=== PATIENT | female | born 1940 | race Caucasian/White ===

== ENCOUNTER 2021-10-15 18:01 | Emergency (ER) | payer OTHER, MEDICARE, BC ==
--- NOTE | 2021-10-15 19:36 | EDM.PDOC ---
ED HPI GENERAL MEDICAL PROBLEM - General Chief Complaint: Lower Extremity Injury/Pain Stated Complaint: L HIP PAIN DUE TO FALL Time Seen by Provider: 10/15/21 19:10 Source of Information: Reports: Patient History Limitations: Reports: No Limitations - History of Present Illness INITIAL COMMENTS - FREE TEXT/NARRATIVE: 81-year-old female fell at work landing on her left hip causing significant discomfort. She could still bear weight, her coworkers helped her to her car she drove here. She has moderate pain at rest, significant pain with weightbearing. There is no deformity, shortening or rotation. No other injury or complaints, she is very healthy, takes no medications and has no significant medical history. Onset: Sudden Duration: Hour(s): (Within the last hour) Location: Reports: Lower Extremity, Left Quality: Reports: Sharp, Stabbing Worsens with: Reports: Other (Weightbearing or palpation is painful), Movement Associated Symptoms: Reports: No Other Symptoms Left Hip Pain Score (Numeric/FACES): 10 - Related Data Allergies Allergy/AdvReac Type Severity Reaction Status Date / Time gluten Allergy Intermediate Rash Verified 10/15/21 18:38 wheat Allergy Intermediate Rash Verified 10/15/21 18:38 Dairy Products Allergy Mild Nausea Verified 10/15/21 18:38 egg Allergy Mild Nausea Verified 10/15/21 18:38 corn Allergy Unknown Cannot Verified 10/15/21 18:38 Remember soy Allergy Unknown Cannot Verified 10/15/21 18:38 Remember Home Meds: Home Meds NK [No Known Home Meds] 10/15/21 [History] Past Medical History Musculoskeletal History: Reports: Fracture Other Musculoskeletal History: wrist and ankle Neurological History: Reports: Concussion Endocrine/Metabolic History: Reports: Other (See Below) Other Endocrine/Metabolic History: hypoglycemia Dermatologic History: Reports: Psoriasis - Infectious Disease History Infectious Disease History: Reports: Chicken Pox, Measles - Past Surgical History Female Surgical History: Reports: Hysterectomy Social & Family History - Tobacco Use Tobacco Use Status *Q: Never Tobacco User - Caffeine Use Caffeine Use: Reports: None - Recreational Drug Use Recreational Drug Use: No Review of Systems - Review of Systems Review Of Systems: See Below Constitutional: Denies: Fever Respiratory: Reports: No Symptoms Cardiovascular: Reports: No Symptoms GI/Abdominal: Reports: No Symptoms Musculoskeletal: Reports: Other (Left hip pain) Skin: Denies: Bruising Neurological: Reports: Paresthesia (Some numbness has developed in the left lower extremity) Psychiatric: Reports: No Symptoms ED EXAM, GENERAL - Physical Exam Exam: See Below Exam Limited By: No Limitations General Appearance: Alert, No Apparent Distress Eye Exam: Bilateral Eye: Normal Inspection Head: Atraumatic Neck: Supple, Non-Tender Respiratory/Chest: No Respiratory Distress Cardiovascular: Regular Rate, Rhythm Extremities: Other (Lower extremities are symmetric, there is no shortening or external rotation of the left leg. Passive range of motion of the hip is uncomfortable but not severe pain. On palpation she is very sore over the lateral left hip. No groin discomfort) Neurological: Alert, Oriented, No Motor/Sensory Deficits Psychiatric: Normal Affect, Normal Mood Skin Exam: Warm, Dry Course - Vital Signs Last Recorded V/S: Last Vital Signs Temp 97.9 F 10/15/21 18:45 Pulse 66 10/15/21 18:45 Resp 16 10/15/21 18:45 BP 139/68 10/15/21 18:45 Pulse Ox 97 10/15/21 18:45 - Orders/Labs/Meds Orders: Active Orders 24 hr Category Date Time Status Consult to Orthopedic Clinic [CONS] Routine Cons 10/15/21 20:16 Active DME for Discharge [COMM] Stat Oth 10/15/21 19:54 Ordered - Re-Assessments/Exams Free Text/Narrative Re-Assessment/Exam: 10/15/21 19:[address] of the pelvis was obtained without contrast. This shows a comminuted slightly displaced greater trochanteric fracture. Dr. Ramon was consulted and is reviewing the films. 10/15/21 21:56 FINDINGS: Bones: Comminuted and nondisplaced fracture of the left femoral greater trochanter. Joints: Degenerative changes of the right hip. Mild degenerative changes of the included lumbar spine. Soft tissues: Unremarkable. IMPRESSION: Nondisplaced fracture of the left greater trochanter. Patient needs just pain control and activity as tolerated with follow-up. She did not want to be hospitalized. She also refused any pain medications. She was given a walker which she tolerated well, was able to get off and on the toilet. Should be discharged and follow-up with Dr. Ramon in 1 week. Departure - Departure Time of Disposition: 20:40 Disposition: Home, Self-Care 01 Clinical Impression: Fracture of greater trochanter of left femur Qualifiers: Encounter type: initial encounter Fracture type: closed Fracture alignment: di splaced Qualified Code(s): S72.112A - Displaced fracture of greater trochanter of left femur, initial encounter for closed fracture - Discharge Information Instructions: Hip Fracture Referrals: PCP,None [Primary Care Provider] - Forms: ED Department Discharge Care Plan Goals: Padding to the area while sleeping will be helpful, use walker for ambulation and increase activity as tolerated. Return anytime if you are unable to care for yourself at home. Recheck with Dr. Ramon next Thursday, they should call you for an appointment time. Sepsis Event Note (ED) - Evaluation Sepsis Screening Result: No Definite Risk - Focused Exam Vital Signs: Vital Signs Temp Pulse Resp BP Pulse Ox 10/15/21 18:45 97.9 F 66 16 139/68 97 10/15/21 18:31 97.9 F 66 16 139/68 97 - My Orders Last 24 Hours: My Active Orders 10/15/21 19:54 DME for Discharge [COMM] Stat 10/15/21 20:16 Consult to Orthopedic Clinic [CONS] Routine - Assessment/Plan Last 24 Hours: My Active Orders 10/15/21 19:54 DME for Discharge [COMM] Stat 10/15/21 20:16 Consult to Orthopedic Clinic [CONS] Routine
--- NOTE | 2021-10-15 20:30 | CRLCT ---
For Patients: As a result of the Century Cures Act, medical imaging exams and procedure reports are released immediately into your electronic medical record. You may view this report before your referring provider. If you have questions, please contact your health care provider. INDICATION: Fall, left hip pain. TECHNIQUE: CT pelvis without contrast. COMPARISON: None. FINDINGS: Bones: Comminuted and nondisplaced fracture of the left femoral greater trochanter. Joints: Degenerative changes of the right hip. Mild degenerative changes of the included lumbar spine. Soft tissues: Unremarkable. IMPRESSION: Nondisplaced fracture of the left greater trochanter. Please note that all CT scans at this facility use dose modulation, iterative reconstruction, and/or weight-based dosing when appropriate to reduce radiation dose to as low as reasonably achievable. Dictated by Brian Conti MD @ 10/15/2021 8:28:28 PM (Electronically Signed)
== END 2021-10-15 20:40 | disposition home or self-care (01) ==
LOC: JP.ED 18:01
DX: S72.115A Nondisplaced fracture of greater trochanter of left femur, initial encounter for closed fracture (principal); Z91.018 Allergy to other foods; Z91.011 Allergy to milk products; Z91.012 Allergy to eggs; W18.30XA Fall on same level, unspecified, initial encounter; Y92.89 Other specified places as the place of occurrence of the external cause; Y99.0 Civilian activity done for income or pay
CPT/HCPCS: 72192; 99284-25